=== PATIENT | female | born 1950 | race Caucasian/White ===

== ENCOUNTER 2019-11-02 13:45 | Observation (INO) | payer MEDICARE, OTHER, SELFPAY ==
[2019-11-02] VITALS (9 sets, daily range): BP systolic 137–205; BP diastolic 59–97; PULSE 57–98; RESP 13–18; TEMP 36.3–36.8; O2SAT 98–99; BMI 39.4; BMI 39.2
--- NOTE | 2019-11-02 13:49 | NURSING ---
NO OLD EKGS
--- NOTE | 2019-11-02 14:02 | EKG12_ITS ---
Test Reason : CP Blood Pressure : / mmHG Vent. Rate : 064 BPM Atrial Rate : 064 BPM P-R Int : 110 ms QRS Dur : 086 ms QT Int : 400 ms P-R-T Axes : 000 062 041 degrees QTc Int : 412 ms Sinus rhythm with short SC Otherwise normal ECG Confirmed by EILA COLEMAN, CHYNA ([id number]), brands editor JS MUÑOZ ([id number]) on 11/07/2019 12:51:43 PM Referred By: KAT Confirmed By:CHYNA RODRIGEZ MD
--- NOTE | 2019-11-02 14:07 | ED.VISSUMM ---
- ER Visit Summary Date of Service: 11/02/19 Chief Complaint: Chest pain History of Present Illness: The patient is a 69 F presenting with chest pain. She states this started around 1030 this morning. She states she was pulling the handle of a chair recliner when she suddenly started having pain in her mid chest. She initially had a sharp midsternal chest pain. She states now it is dull. She states initially pain was 10 out of 10 now 3 out of 10. She denies radiation. She denies shortness of breath, nausea, diaphoresis. Pain improved with rest. No recent fever or cough. No history of DVT/PE. She did recently travel from [place] but she is on Xarelto for history of A. fib. Physical Examination: Vitals are stable. Patient is afebrile. Alert no acute distress. HEENT exam is unremarkable. Neck is supple. Lungs are clear and equal bilaterally. Chest wall tenderness with no crepitus Heart is regular rate and rhythm. Abdomen is soft nontender nondistended. Extremities are unremarkable. Skin is warm and dry. No focal neurologic deficit. Remainder of exam is unremarkable. Emergency Department Course and Treatment: EKG is sinus rhythm rate of 64 with no acute ischemic changes. Patient is given aspirin, morphine, Zofran. CBC, chemistries unremarkable other than creatinine 1.22. Troponin is negative. Chest x-ray shows no acute process. Patient is from out [facility] does not want to stay in the hospital. She is agreeable to a delta troponin. While in the emergency department patient began having more chest pain. This worsened when she walked to the bathroom. She is now agreeable to observation. Discussed with the hospitalist for observation. Disposition: Observation Impression: Chest pain This note was generated with [employer] dictation software. It may contain incorrect words, spelling, and punctuation that were not noted in review of the chart prior to signing ED Disposition - Plan for ED Patient: Referrals: [facility] Doctor,Out of [NON-STAFF] -
[2019-11-02] MEDS: Aspirin 81 MG TAB.CHEW 324 MG PO (14:14)
[2019-11-02 14:16] LABS: Absolute Lymphocyte Count 2.03 X10^3/uL (0.83-4.51); Absolute Neutrophil Count 6.8 X10^3/uL (2.0-7.7); Basophil# 0.02 X10^3/uL; Basophil% 0.2 % (0-1); Eosinophil# 0.03 X10^3/uL; Eosinophils% 0.3 % (0-5); Hematocrit 39.1 % (37-47); Hemoglobin 11.9 g/dL (12.0-15.0); Lymphocyte # 2.03 X10^3/ul (4.0); Mean Corp Hgb Conc 30.4 g/dL (32-36); Mean Corpuscular Hgb 28.3 pg (27.0-32.0); Mean Corpuscular Volume 93.1 fL (81-99); Mean Platelet Vol. 9.8 fl (6.2-12.0); Monocyte# 0.75 X10^3/uL; Monocyte% 7.8 % (0-10); NRBC Flagged by Analyzer 0 % (0-5); Neutrophil # 6.76 X10^3/uL (2.7-7.7); Neutrophil % 70.1 % (47-70); Platelet Count 378 K/mm3 (150-450); RBC Distribution Width CV 15.1 % (11.6-14.6); RBC Distribution Width SD 51.7 fl (35.1-43.9); White Blood Count 9.7 K/mm3 (4.4-11.0)
--- NOTE | 2019-11-02 14:20 | RAD_ITS ---
STUDY: X-RAY CHEST REASON FOR EXAM: Female, 69 years old. Patient with chest pain that started at 1030 this morning. Has been constant since then. TECHNIQUE: Single AP portable view of the chest. COMPARISON: None. FINDINGS: EKG electrodes are seen. Hyperinflation. The lungs are clear. There is no demonstrated pleural abnormality. Normal size heart. Normal mediastinum and kaila. Normal visualized pulmonary arteries. There is atherosclerotic tortuosity of the aortic arch and descending thoracic aorta. There are diffuse degenerative changes of the visualized thoracic spine. There is degenerative osteoarthritis of the bilateral shoulders. Prior ORIF of the right mid clavicular fracture with screw in the plate fixation device. There is no demonstrated abnormality of the visualized soft tissue structures of the upper abdomen. RAD/Chest 1 View (Portable) IMPRESSION: Hyperinflation. The lungs are clear. Electronically Signed: Mejia Love, at 14:31 EDT , Service support ,
[2019-11-02 14:24] LABS: Anion Gap 4 (5-15); BUN 27 mg/dL (7-18); BUN/Creat Ratio 22.1 RATIO (10-20); Calcium,Total 8.9 mg/dL (8.5-10.1); Chloride 111 mmol/L (98-107); Creatinine, Serum 1.22 mg/dL (0.55-1.02); EST Glomerular Filtration Rate 47 mL/min (>60); Est Glom Filt Rate - Afr Amer 56 mL/min (>60); Estimated Creatinine Clearance 39.71 ml/min; Glucose 96 mg/dL (74-106); Sodium Level 140 mmol/L (136-145)
--- NOTE | 2019-11-02 16:18 | NURSING ---
DR PHANI DOTY
--- NOTE | 2019-11-02 16:42 | PCM.HP.STD ---
Problem List (1) Chest pain Status: Acute (2) Paroxysmal A-fib Status: Chronic (3) HTN (hypertension) Status: Chronic History of Present Illness Date of Admission: 11/02/19 Chief Complaint: chest pain The patient is a 69 year old F with pmhx of afib with prior ablation this year, HTN, who presented to the ER with c/o chest pain. This began after she was moving some things in her house around 1030 am, she sat in a chair, then went to stand up and developed chest pressure that was dull and located in the midsternal to left side of her chest. It is currently rated at 3-4 /10. She denies a hx of coronary disease. She has not had a stress test in many years. She has no SOB. She is here visiting from [place], which is where her general surgeon is located. [] Past Medical History Past Medical History (Chronic Problems): Chronic Problems Paroxysmal A-fib (Chronic) HTN (hypertension) (Chronic) Allergies Penicillins Allergy (Verified 11/02/19 13:51) Pain in joints Home Medications: Ambulatory Orders Medication Instructions Recorded Alendronate Sodium [Fosamax] 70 mg PO SA 11/02/19 Dronedarone Hydrochloride [Multaq] 400 mg PO BID 11/02/19 Lisinopril 5 mg PO DAILY 11/02/19 Losartan Potassium 100 mg PO DAILY 11/02/19 Magnesium Gluconate 27.5 mg PO DAILY 11/02/19 Pantoprazole Sodium [Protonix] 40 mg PO DAILY 11/02/19 Potassium Chloride [Klor-Con M10] 10 meq PO DAILY 11/02/19 Rivaroxaban [Xarelto] 20 mg PO DAILY 11/02/19 Zolpidem Tartrate 10 mg PO QHS 11/02/19 Surgical History: cataract, rotator cuff repair, total knee arthroplasty, tonsillectomy, - - clavicular fx, c section, tubal ligation Psychiatric History: No pertinent psych hx 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 Denies: Palpitations, Syncope Respiratory: Denies: Cough, Shortness of Breath, Shortness of breath at rest, Sputum production Gastrointestinal: Denies: Abdominal Pain, Nausea, Vomiting Genitourinary: Denies: Dysuria Musculoskeletal: Denies: Joint Pain, Joint Tenderness Skin: Denies: Rash, Wounds Neurological: Denies: Numbness, Tingling, Focal weakness Psychiatric: Denies: Anxiety, Depression, Homicidal Ideations, Suicidal Ideations Hematologic/ Lymphatic: Denies: Easy Bruising, Easy Bleeding VTE Information - Inpt Only VTE Present on Admission: No VTE Mechan Device Prophylaxis: None VTE Pharm Prophylaxis ordered?: Yes - Physical Exam Vitals/I&O's: Vital Signs Temp Pulse Resp BP Pulse Ox 98.2 F 61 16 179/97 H 99 11/02/19 13:47 11/02/19 16:13 11/02/19 16:13 11/02/19 16:13 11/02/19 16:13 Oxygen Delivery Method Room Air Weight: 236 lb 12.423 oz Body Mass Index (BMI) 39.4 General: Alert, Oriented x3, Cooperative HEENT: Atraumatic, PERRLA, EOMI, Normocephalic Neck: Supple, No JVD, Negative Carotid Bruits Lungs: Clear to auscultation, Normal air movement Cardiovascular: Regular rate, No murmurs Abdomen: Bowel Sounds Present, Soft, Non Tender Extremities: No edema, Capillary Refill Less than 3 Seconds Skin: No rashes, No breakdown Musculoskeletal: No Tenderness to Palpation of Joints or Extremities Neurological: Cranial nerves II-XII grossly intact Psych/Mental Status: Appropriate, Anxious, Alert and oriented to time, place, person, mood and affect Laboratory Results 11/02/19 13:50: WBC 9.7, RBC 4.20, Hgb 11.9 L, Hct 39.1, MCV 93.1, MCH 28.3, MCHC 30.4 L, RDW Std Deviation 51.7 H, RDW Coeff of Katlyn 15.1 H, Plt Count 378, MPV 9.8, Immature Gran % (Auto) 0.600, Neut % (Auto) 70.1 H, Lymph % (Auto) 21.0, [place] % (Auto) 7.8, Eos % (Auto) 0.3, Baso % (Auto) 0.2, Absolute Neuts (auto) 6.8, Absolute Lymphs (auto) 2.03, Nucleated RBC % 0 11/02/19 13:50: Sodium 140, Potassium 5.0, Chloride 111 H, Carbon Dioxide 25.0, Anion Gap 4 L, BUN 27 H, Creatinine 1.22 H, Estim Creat Clear Calc 39.71, Est GFR (MDRD) Af Amer 56 L, Est GFR (MDRD) Non-Af 47 L, BUN/Creatinine Ratio 22.1 H, Glucose 96, Calcium 8.9, Troponin I < 0.015 Assessment/Plan All Active Problems Chest pain (Acute) 1. Chest pain - EKG neg, trop neg, cxr neg. obs to PCU on tele. cycle enzymes, treadmill stress in am, ekg in AM. 2. pAfib - rate controlled. dronedarone, xarelto 3. HTN - elevated in the ER - continue home meds, if remains elevated add additional agents at discharge. DVT ppx: lovenox This patient was seen by Jonathan Paz PA-C under the supervision of Dr. Cameron.
--- NOTE | 2019-11-02 17:40 | EKG12_ITS ---
Test Reason : AM EKG Blood Pressure : / mmHG Vent. Rate : 068 BPM Atrial Rate : 068 BPM P-R Int : 138 ms QRS Dur : 088 ms QT Int : 406 ms P-R-T Axes : 005 058 045 degrees QTc Int : 431 ms Normal sinus rhythm Normal ECG When compared with ECG of 02-NOV-2019 17:14, MANUAL COMPARISON REQUIRED, DATA IS UNCONFIRMED Confirmed by MARC COLEMAN, SANDI ([id number]), editor continuity and script IRMA HOROWITZ ([id number]) on 11/07/2019 1:28:53 PM Referred By: PHANI Confirmed By:LUIZ TRAN MD
[2019-11-02] MEDS: amLODIPine 5 MG Tablet PO (20:11)
[2019-11-02] MEDS: Zolpidem Tartrate 5 MG Tablet 10 MG PO (21:03)
[2019-11-03 01:16] VITALS: BP 156/79; PULSE 62; RESP 16; TEMP 36.5; O2SAT 96
[2019-11-03 02:54] VITALS: PULSE 58
--- NOTE | 2019-11-03 05:55 | EKG12_ITS ---
Test Reason : Blood Pressure : / mmHG Vent. Rate : 057 BPM Atrial Rate : 057 BPM P-R Int : 130 ms QRS Dur : 092 ms QT Int : 430 ms P-R-T Axes : 004 057 050 degrees QTc Int : 418 ms Sinus bradycardia Otherwise normal ECG No previous ECGs available Confirmed by MARC COLEMAN, SANDI ([id number]), editor news IRMA HOROWITZ ([id number]) on 11/07/2019 1:30:10 PM Referred By: LEO Confirmed By:LUIZ TRAN MD
[2019-11-03 06:21] VITALS: BP 141/74; PULSE 60; RESP 16; TEMP 36.5; O2SAT 97
[2019-11-03] MEDS: Losartan Potassium 100 MG Tablet PO (06:24)
[2019-11-03 06:59] VITALS: PULSE 55
[2019-11-03 10:26] VITALS: PULSE 57; O2SAT 97
--- NOTE | 2019-11-03 11:41 | DCINST_ITS ---
You will use the following diet at home:: No restrictions Discharge Activity: Return to Normal Activity Call your doctor if you observe: Shortness of breath, Dizziness, Fainting spells, Chest pain Additional Instructions: May use as needed Tylenol for musculoskeletal chest pain. Avoid use of routine NSAIDs while on Xarelto. Allergies/Adverse Reactions: Allergies Penicillins Allergy (Verified 11/02/19 13:51) Pain in joints Medications to take at Discharge Alendronate Sodium [Fosamax] 70 mg PO SA 11/02/19 Dronedarone Hydrochloride [Multaq] 400 mg PO BID 11/02/19 Lisinopril 5 mg PO DAILY 11/02/19 Losartan Potassium 100 mg PO DAILY 11/02/19 Magnesium Gluconate 27.5 mg PO DAILY 11/02/19 Pantoprazole Sodium [Protonix] 40 mg PO DAILY 11/02/19 Potassium Chloride [Klor-Con M10] 10 meq PO DAILY 11/02/19 Rivaroxaban [Xarelto] 20 mg PO DAILY 11/02/19 Zolpidem Tartrate 10 mg PO QHS 11/02/19 Primary Care Physician: Abirl Carlson,Out of [NON-STAFF] - Please follow up with your Primary Care Physician in: 1 Week Test Results: Test results from this visit will be discussed in further detail at your follow- up appointment, if applicable. Proposed Discharge Date: 11/03/19
--- NOTE | 2019-11-03 11:55 | PHA.DC.MR ---
Pharmacy Service has performed discharge medication reconciliation for this patient. The patient's discharge medication list was reviewed for discrepancies and discrepancies were resolved. Home Medications Alendronate Sodium [Fosamax] 70 mg PO SA 11/02/19 Dronedarone Hydrochloride [Multaq] 400 mg PO BID 11/02/19 Lisinopril 5 mg PO DAILY 11/02/19 Losartan Potassium 100 mg PO DAILY 11/02/19 Magnesium Gluconate 27.5 mg PO DAILY 11/02/19 Pantoprazole Sodium [Protonix] 40 mg PO DAILY 11/02/19 Potassium Chloride [Klor-Con M10] 10 meq PO DAILY 11/02/19 Rivaroxaban [Xarelto] 20 mg PO DAILY 11/02/19 Zolpidem Tartrate 10 mg PO QHS 11/02/19
[2019-11-03 12:13] VITALS: BP 142/71; PULSE 63; RESP 16; TEMP 36.3; O2SAT 95
--- NOTE | 2019-11-03 12:29 | STRESSREP ---
Stress Test Report Date: 11/03/2019 Procedure: Exercise tolerance test/imaging study Indications: Chest pain Consent: Per the patient Procedure: The patient exercised on a Shree protocol for 3 minutes achieving a peak heart rate of 129 bpm (84 % predicted maximal heart rate) with a peak blood pressure 180/74 mmHg and a peak MET capacity of 4.6 METs. The baseline ECG demonstrated normal sinus rhythm. The peak exercise ECG demonstrated no significant ischemic ST-T changes. Occasional PVCs. EKG during recovery revealed occasional PVCs, no significant ST-T changes [There were no cardiac significant dysrhythmias pretest, during exercise, or recovery]. The functional capacity was considered decreased for age. Patient had 2/10 chest pain prior to which increased to 4/10 with exercise and came down to 2/10 in the recovery. The examination was discontinued secondary to dyspnea. Impression: 1. Technically adequate exercise tolerance test 2. Stress test is negative for exercise-induced EKG changes of ischemia 3. Patient had mild chest discomfort at baseline which increased slightly with exercise 4. Functional capacity is decreased for age 5. Nuclear images pending Myocardial perfusion imaging study: Technique: The patient was injected with 14.2 mCi of technetium 99m Cardiolite and subsequently rest SPECT Cardiolite nuclear imaging was obtained in the horizontal long, vertical long, and short axis views. The patient exercised on a Shree protocol. Please see above for details. The patient was injected with 44.1 mCi of technetium 99m Cardiolite and subsequently stress SPECT Cardiolite nuclear imaging was obtained in the horizontal long, vertical long, and short axis views. A gated Cardiolite study at peak stress was obtained. Interpretation: Rest and stress SPECT Cardiolite nuclear imaging status post realignment, normalization, and attenuation correction, demonstrates normal myocardial radioisotope uptake. The gated Cardiolite study demonstrates no significant regional wall motion abnormalities. The reported LVEF is greater than 70 %. Impression: 1. There is no evidence of significant ischemia or infarction. 2. The gated Cardiolite study reports an LVEF of greater than 70 %. This note was generated with [employer] software. It may contain incorrect words, spelling, and punctuation that were not noted in checking the note before signing.
--- NOTE | 2019-11-03 13:00 | DS.PCM_ITS ---
<Rdaha Mark NP - Last Filed: 11/03/19 13:09> Discharge Date and Diagnosis Date of Admission: 11/02/19 Date of Discharge: 11/03/19 - Primary Discharge Diagnosis Acute Problems: 1. Musculoskeletal chest pain 2. Paroxysmal atrial fibrillation 3. Hypertension 4. GERD 5. Osteoarthritis 6. Mildly increased creatinine - Secondary Discharge Diagnosis Chronic Problems: Chronic Problems Paroxysmal A-fib (Chronic) HTN (hypertension) (Chronic) Hospital Course and Treatment Imaging Results: Diagnostic Data Chest X-Ray 11/02/19 14:20 IMPRESSION: Hyperinflation. The lungs are clear. Electronically Signed: Mejia Love, at 14:31 EDT , Service support , Operations: None Procedures: Stress test Summary of Care Provided: The patient is a 69 year old F admitted 11/02/2019 due to chest pain. 1. Musculoskeletal chest pain- ACS ruled out. Pain reproducible with palpation. Patient reports increased pain with movement. No other associated symptoms. Troponin negative. EKG without ST-T changes. Patient underwent nuclear stress test which was negative for ischemia. Gated ejection fraction 70%. Follow-up with PCP in 1 week. 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 2. Paroxysmal atrial fibrillation-on Multaq, Xarelto. 3. Hypertension-intermittently elevated during admission however patient reports her BP regimen was recently adjusted. Continue losartan, lisinopril. BP now stable. Follow-up with primary transformer builder in 1 week as outpatient. 4. GERD-continue PPI. 5. Osteoarthritis/osteoporosis-continue Fosamax, PRN pain regimen. 6. Mildly increased creatinine-[place]. Unknown baseline kidney function. Recommend repeat BMP by PCP. Patient seen and examined prior to discharge. Physical assessment as noted b elow. Patient is stable for discharge with follow up recommendations as noted above. This patient was seen by OZ Shafer under the supervision of Dr. Whatley. - Physical Exam Vitals/I&O's: Vital Signs Temp Pulse Resp BP Pulse Ox 97.4 F L 63 16 142/71 H 95 11/03/19 12:13 11/03/19 12:13 11/03/19 12:13 11/03/19 12:13 11/03/19 12:13 Oxygen Delivery Method Room Air Weight: 235 lb 14.314 oz Body Mass Index (BMI) 39.2 Intake and Output for Last 24 Hours 11/01/19 11/02/19 11/03/19 23:59 23:59 23:59 Intake Total 120 / 120 480 / 480 Balance 120 / 120 480 / 480 General: Alert, Oriented x3, Cooperative HEENT: Atraumatic, PERRLA, EOMI, Normocephalic Neck: Supple, No JVD, Negative Carotid Bruits Lungs: Clear to auscultation, Normal air movement Cardiovascular: Regular rate, No murmurs Abdomen: Bowel Sounds Present, Soft, Non Tender Extremities: No clubbing, No cyanosis, No edema, Capillary Refill Less than 3 Seconds Skin: No rashes, No breakdown Musculoskeletal: No Tenderness to Palpation of Joints or Extremities Neurological: Cranial nerves II-XII grossly intact, Neuro grossly intact Psych/Mental Status: Normal Affect, Appropriate Laboratory Results 11/02/19 13:50: WBC 9.7, RBC 4.20, Hgb 11.9 L, Hct 39.1, MCV 93.1, MCH 28.3, MCHC 30.4 L, RDW Std Deviation 51.7 H, RDW Coeff of Katlyn 15.1 H, Plt Count 378, MPV 9.8, Immature Gran % (Auto) 0.600, Neut % (Auto) 70.1 H, Lymph % (Auto) 21.0, [place] % (Auto) 7.8, Eos % (Auto) 0.3, Baso % (Auto) 0.2, Absolute Neuts (auto) 6.8, Absolute Lymphs (auto) 2.03, Nucleated RBC % 0 11/02/19 13:50: Sodium 140, Potassium 5.0, Chloride 111 H, Carbon Dioxide 25.0, Anion Gap 4 L, BUN 27 H, Creatinine 1.22 H, Estim Creat Clear Calc 39.71, Est GFR (MDRD) Af Amer 56 L, Est GFR (MDRD) Non-Af 47 L, BUN/Creatinine Ratio 22.1 H , Glucose 96, Calcium 8.9, Troponin I < 0.015 11/02/19 17:32: Troponin I < 0.015 11/02/19 20:07: Troponin I < 0.015 Current Medications Losartan Potassium (Cozaar) 100 mg PO DAILY [facility] Last Admin: 11/03/19 06:24 Dose: 100 mg Documented by: Morphine Sulfate () 2 mg IV Q3H PRN PRN PRN Reason: Pain Score 6-10/10 Ondansetron HCl (Zofran) 4 mg IV Q8H PRN PRN PRN Reason: NAUSEA/VOMITING Sodium Chloride () 10 - 40 ml IV UD PRN PRN Reason: SALINE FLUSH Zolpidem Tartrate (Ambien (Generic)) 10 mg PO QHS [facility] Last Admin: 11/02/19 21:03 Dose: 10 mg Documented by: Discharge Diet: No Restrictions Discharge Activity: Return to Normal Activity Call your doctor if you observe: Shortness of breath, Dizziness, Fainting spells, Chest pain Home Medications: Medications to take at Discharge Alendronate Sodium [Fosamax] 70 mg PO SA 11/02/19 Dronedarone Hydrochloride [Multaq] 400 mg PO BID 11/02/19 Lisinopril 5 mg PO DAILY 11/02/19 Losartan Potassium 100 mg PO DAILY 11/02/19 Magnesium Gluconate 27.5 mg PO DAILY 11/02/19 Pantoprazole Sodium [Protonix] 40 mg PO DAILY 11/02/19 Potassium Chloride [Klor-Con M10] 10 meq PO DAILY 11/02/19 Rivaroxaban [Xarelto] 20 mg PO DAILY 11/02/19 Zolpidem Tartrate 10 mg PO QHS 11/02/19 Primary Care Physician: [facility] Doctor,Out of [NON-STAFF] - Please follow up with your Primary Care Physician in: 1 Week Disposition: Home Minutes spent on discharge:: 35 Patient Condition:: Stable Medical Necessity - Tobacco Use Smoking Status: Never smoker Tobacco Use: Non-smoker Meaningful Use Info Meaningful Use Diagnoses (Choose all that apply): None applicable <Beau Whatley - Last Filed: 11/03/19 13:34> Discharge Date and Diagnosis - Secondary Discharge Diagnosis Chronic Problems: Chronic Problems Paroxysmal A-fib (Chronic) HTN (hypertension) (Chronic) Hospital Course and Treatment Imaging Results: 11/03/19 05:55 Nuclear Stress Test - Treadmil [NM] AM (NON MEDS) Summary of Care Provided: This patient was seen in conjunction with OZ Shafer . I have independently interviewed and examined the patient and reviewed pertinent historical, laboratory, and other data. Please refer to OZ Shafer note for details of this patient's presentation, findings, and recommendations. I have reviewed OZ Shafer note and concur with documented findings. In brief, patient comorbidities including paroxysmal A. fib, essential hypertension, GERD osteoporosis who presented with chest pain. Placed on a monitored bed underwent a nuclear stress test which was negative for stress- induced ischemia. Hospital course; as documented above - Physical Exam Vitals/I&O's: Vital Signs Temp Pulse Resp BP Pulse Ox 97.4 F L 63 16 142/71 H 95 11/03/19 12:13 11/03/19 12:13 11/03/19 12:13 11/03/19 12:13 11/03/19 12:13 Oxygen Delivery Method Room Air Weight: 107 kg Body Mass Index (BMI) 39.2 Intake and Output for Last 24 Hours 11/01/19 11/02/19 11/03/19 23:59 23:59 23:59 Intake Total 120 / 120 480 / 480 Balance 120 / 120 480 / 480 Laboratory Results 11/02/19 13:50: WBC 9.7, RBC 4.20, Hgb 11.9 L, Hct 39.1, MCV 93.1, MCH 28.3, MCHC 30.4 L, RDW Std Deviation 51.7 H, RDW Coeff of Katlyn 15.1 H, Plt Count 378, MPV 9.8, Immature Gran % (Auto) 0.600, Neut % (Auto) 70.1 H, Lymph % (Auto) 21.0, [place] % (Auto) 7.8, Eos % (Auto) 0.3, Baso % (Auto) 0.2, Absolute Neuts (auto) 6.8, Absolute Lymphs (auto) 2.03, Nucleated RBC % 0 11/02/19 13:50: Sodium 140, Potassium 5.0, Chloride 111 H, Carbon Dioxide 25.0, Anion Gap 4 L, BUN 27 H, Creatinine 1.22 H, Estim Creat Clear Calc 39.71, Est GFR (MDRD) Af Amer 56 L, Est GFR (MDRD) Non-Af 47 L, BUN/Creatinine Ratio 22.1 H , Glucose 96, Calcium 8.9, Troponin I < 0.015 11/02/19 17:32: Troponin I < 0.015 11/02/19 20:07: Troponin I < 0.015 OBSV E&M: [id number] Observation care discharge
== END 2019-11-03 11:41 | disposition home or self-care (01) ==
LOC: ED 15:19 → PCU 17:00
PROVIDERS: Admitting Provider Internal Medicine; Emergency Provider Emergency Medicine; Visit Provider Internal Medicine
DX: R07.89 Other chest pain (principal); I48.0 Paroxysmal atrial fibrillation; I10 Essential (primary) hypertension; K21.9 Gastro-esophageal reflux disease without esophagitis; M19.90 Unspecified osteoarthritis, unspecified site; Z79.899 Other long term (current) drug therapy; Z79.01 Long term (current) use of anticoagulants
CPT/HCPCS: 36415; 71045; 78452; 80048; 84484; 85025; 93005; 93017; 99218; 99285; A9500; A4216; G0378